=== PATIENT | male | born 1990 | race American Indian/Alaskan Native ===

== ENCOUNTER 2018-01-21 09:19 | Emergency (ER) | payer OTHER ==
[2018-01-21 09:30] VITALS: BP 117/67
[2018-01-21] MEDS ORDERED: ZOFRAN IV ONE (09:51)
[2018-01-21] MEDS ORDERED: NACL 0.9% 1000 ML 1,000 ML IV ONE (09:51)
--- NOTE | 2018-01-21 09:56 | Emergency Department Report ---
ED General Adult HPI - General Chief complaint: Weakness Stated complaint: CHEST/THROAT PAIN Time Seen by Provider: 01/21/18 09:45 Source: patient Mode of arrival: Ambulatory Limitations: No Limitations - History of Present Illness Initial comments: Patient is 27 years old male with significant past medical history. Patient presented to the ER complaining of 3 week history of generalized weakness and weight loss of about 10 pounds. Patient also stated that his been having difficulty swallowing and he has some whitish discoloration on his tongue and his oral area. Patient stated that he is sexually active with 1 male partner. Patient stated that he was tested for HIV 5 months ago and was negative. Patient denied any fever that is stated that he's been having loss of appetite for the last 3 month. - Related Data Home Medications Medication Instructions Recorded Confirmed Last Taken Cyanocobalamin (Vitamin B-12) 1,000 mcg PO DAILY 01/21/18 01/21/18 Unknown [Vitamin B-12] Multivit-Min/Iron Fum/Folic AC 1 each PO DAILY 01/21/18 01/21/18 Unknown [Htfal-Uwoqzmf-Fxuktmtg Tablet] Allergies Allergy/AdvReac Type Severity Reaction Status Date / Time No Known Allergies Allergy Unverified 01/21/18 09:30 ED Review of Systems ROS: Stated complaint: CHEST/THROAT PAIN Other details as noted in HPI Comment: All other systems reviewed and negative ENT: throat pain Respiratory: cough Cardiovascular: denies: chest pain, palpitations Gastrointestinal: nausea. denies: abdominal pain, vomiting, diarrhea, constipation, hematemesis, melena, hematochezia Genitourinary: denies: urgency, dysuria, frequency, hematuria, discharge Neurological: weakness (generalized). denies: headache, numbness, paresthesias , confusion, abnormal gait, vertigo ED Past Medical Hx - Past Medical History Previous Medical History?: No - Surgical History Past Surgical History?: No - Social History Smoking Status: Never Smoker Substance Use Type: None - Medications Home Medications: Home Medications Medication Instructions Recorded Confirmed Last Taken Type Cyanocobalamin (Vitamin B-12) 1,000 mcg PO DAILY 01/21/18 01/21/18 Unknown History [Vitamin B-12] Multivit-Min/Iron Fum/Folic AC 1 each PO DAILY 01/21/18 01/21/18 Unknown History [Fjnsu-Ppkhcuc-Hixxxbqa Tablet] ED Physical Exam - General Limitations: No Limitations General appearance: alert, in no apparent distress, cachectic - Head Head exam: Present: atraumatic, normocephalic, normal inspection - Eye Eye exam: Present: normal appearance, PERRL - ENT ENT exam: Present: other (oral thrush) - Neck Neck exam: Present: normal inspection, full ROM. Absent: tenderness, meningismus, lymphadenopathy, thyromegaly - Respiratory Respiratory exam: Present: normal lung sounds bilaterally. Absent: respiratory distress, wheezes, rales, rhonchi, chest wall tenderness, accessory muscle use, decreased breath sounds, prolonged expiratory - Cardiovascular Cardiovascular Exam: Present: regular rate, normal rhythm, normal heart sounds - GI/Abdominal GI/Abdominal exam: Present: soft, normal bowel sounds. Absent: distended, tenderness, guarding, rebound, rigid, organomegaly, mass, bruit, pulsatile mass , hernia - Back Exam Back exam: Present: normal inspection, full ROM. Absent: tenderness, CVA tenderness (L), muscle spasm, paraspinal tenderness, vertebral tenderness - Neurological Exam Neurological exam: Present: alert, oriented X3, CN II-XII intact, normal gait, reflexes normal - Skin Skin exam: Present: warm, intact, normal color ED Course Vital Signs 01/21/18 09:25 Temperature 99.1 F Pulse Rate 106 H Respiratory 16 Rate Blood Pressure 117/67 O2 Sat by Pulse 100 Oximetry ED Medical Decision Making - Lab Data Result diagrams: 01/21/18 10:40 01/21/18 10:40 - Radiology Data Radiology results: report reviewed Referring Physician: LYNDSAY RADER Patient Name: FAY BARROSO Date of : 1990 Sex: Male Report Date: 2018-01-21 Report Status: Finalized Findings [facility] [address] [place] [address] XRay Report Signed Patient: FAY BARROSO MR#: [id number] : 1990 Acct:[id number] Age/Sex: 27 / M ADM Date: 01/21/18 Loc: ED Attending Dr: Ordering Physician: LYNDSAY RADER Date of Service: 01/21/18 Procedure(s): XR chest routine 2V Accession Number(s): [id number] cc: LYNDSAY Mejias Time In Minutes: ROUTINE CHEST, TWO VIEWS: HISTORY: Weakness. The trachea, heart, mediastinal contour, lung najera and bony thorax are unremarkable. IMPRESSION: Unremarkable chest x-ray. Transcribed By: TTR Dictated By: BHAVESH CONROY JR, MD Electronically Authenticated By: BHAVESH CONROY JR, MD Signed Date/Time: 01/21/18 101 DD/ 1017 TD/TT: 01/21/18 1017 - Medical Decision Making I discussed the patient with Dr Villa for admission. Critical care attestation.: If time is entered above; I have spent that time in minutes in the direct care of this critically ill patient, excluding procedure time. ED Disposition Clinical Impression: Newly diagnosed HIV-positive, Oral pharyngeal candidiasis Disposition: OP ADMIT IP TO THIS HOSP Is pt being admited?: Yes Condition: Stable Referrals: PRIMARY CARE, [Primary Care Provider] - 3-5 Days
--- NOTE | 2018-01-21 10:40 | XRay Report ---
ROUTINE CHEST, TWO VIEWS: HISTORY: Weakness. The trachea, heart, mediastinal contour, lung najera and bony thorax are unremarkable. IMPRESSION: Unremarkable chest x-ray.
[2018-01-21 10:51] LABS: Hematocrit 30.7 % (35.5-45.6); Mean Corpuscular HGB Conc 33 % (32-34); Mean Corpuscular Hemoglobin 30 pg (28-32); Mean Corpuscular Volume 92 fl (84-94); Platelet Count 198 K/mm3 (140-440); Red Blood Count 3.33 M/mm3 (3.65-5.03); Red Cell Distribution Width 14.9 % (13.2-15.2)
[2018-01-21 11:08] LABS: Bacteria,Urine 1+ /HPF (Negative); Bilirubin,Urine NEG (Negative); Blood,Urine NEG (Negative); Color,Urine Yellow (Yellow); Mucus,Urine 3+ /HPF; Urobilinogen,Urine < 2.0 mg/dL (<2.0)
[2018-01-21 11:12] LABS: Albumin 3.7 g/dL (3.9-5); BUN/Creatinine Ratio 10; Blood Urea Nitrogen 8 mg/dL (9-20); Calcium 9.1 mg/dL (8.4-10.2); Hemolysis Index 99
[2018-01-21 12:06] LABS: Alanine Aminotransferase 34 units/L (7-56)
[2018-01-21 12:24] LABS: Anisocytosis 1+; Basophils % (Manual) 0 % (0.0-1.8); Eosinophils % (Manual) 0 % (0.0-4.3); Total Cells Counted 100
[2018-01-21 12:25] LABS: Ovalocytes Few; Platelet Estimate Cons; Poikilocytosis 1+; Tear Drop Cells Few
[2018-01-21] MEDS ORDERED: MAGIC MOUTHWASH PO ONE (12:41)
--- NOTE | 2018-01-21 12:42 | History and Physical Report ---
History of Present Illness Chief complaint: I think something is wrong with my body History of present illness: 27 YO Male with no PMH presents to ED for evaluation of difficulty swallowing. Pt seen and evaluated in ED and found to have Oral Dona as well as HIV Disease. Pt treated with HIV testing which was found to be positive. Pt treated with antifungal therapy and magic mouth wash with improvement in symptoms. Pt medically optimized and back to usual state of health. Pt discharged home and instructed to f/u pcp 1 wk, and ID at discharge. Past History Past Medical History: No medical history Past Surgical History: No surgical history, Other (reviewed) Social history: single Family history: no significant family history Medications and Allergies Allergies Allergy/AdvReac Type Severity Reaction Status Date / Time No Known Allergies Allergy Unverified 01/21/18 09:30 Home Medications Medication Instructions Recorded Confirmed Last Taken Type Cyanocobalamin (Vitamin B-12) 1,000 mcg PO DAILY 01/21/18 01/21/18 Unknown History [Vitamin B-12] Fluconazole [Diflucan TAB] 100 mg PO QDAY #7 tablet 01/21/18 Unknown Rx Multivit-Min/Iron Fum/Folic AC 1 each PO DAILY 01/21/18 01/21/18 Unknown History [Ytvms-Wjllcpo-Rxricafa Tablet] Nystas/Diphen/Xyl Visc/Mylanta 30 ml MM Q4H PRN #300 ml 01/21/18 Unknown Rx [Magic Mouthwash] Active Meds: Active Medications Lidocaine HCl (Magic Mouthwash) 15 ml PO ONCE ONE Stop: 01/21/18 12:42 Review of Systems Constitutional: weight loss, fatigue, weakness, malaise Ears, nose, mouth and throat: no ear pain, no ear discharge, no tinnitis, no decreased hearing, no nose pain, no nasal congestion, no nasal discharge Cardiovascular: no chest pain, no orthopnea, no palpitations, no rapid/ irregular heart beat, no edema, no syncope, no lightheadedness Respiratory: no cough, no cough with sputum, no excessive sputum, no hemoptysis , no shortness of breath Gastrointestinal: no abdominal pain, no nausea, no vomiting, no diarrhea Genitourinary Male: no hematuria, no flank pain, no discharge, no urinary frequency, no nocturia, no incontinence, no erectile dysfunction Rectal: no pain, no incontinence, no bleeding Musculoskeletal: no neck stiffness, no neck pain, no shooting arm pain, no arm numbness/tingling, no low back pain, no shooting leg pain Integumentary: no rash, no pruritis, no redness, no sores, no wounds Neurological: no transient paralysis, no paralysis, no weakness, no parathesias , no numbness, no tingling, no seizures, no syncope Psychiatric: no anxiety, no memory loss, no change in sleep habits, no sleep disturbances, no insomnia, no hypersomnia, no change in appetite, no change in libido, no suicidal ideation, no disorientation Endocrine: no cold intolerance, no heat intolerance, no polyphagia, no excessive thirst, no polydipsia, no polyuria Hematologic/Lymphatic: no easy bruising, no easy bleeding, no lymphadenopathy, no lymphedema Allergic/Immunologic: no urticaria, no allergic rhinitis, no wheezing, no persistent infections, no anaphylaxis, no angioedema Exam - Constitutional Vitals: Temp Pulse Resp BP Pulse Ox 99.1 F 106 H 16 117/67 100 01/21/18 09:25 01/21/18 09:25 01/21/18 09:25 01/21/18 09:25 01/21/18 09:25 General appearance: Present: no acute distress, cachectic - EENT Eyes: Present: PERRL ENT: hearing intact, clear oral mucosa - Neck Neck: Present: supple, normal ROM - Respiratory Respiratory effort: normal Respiratory: bilateral: CTA - Cardiovascular Heart Sounds: Present: S1 & S2. Absent: rub, click - Extremities Extremities: pulses symmetrical, No edema Peripheral Pulses: within normal limits - Abdominal General gastrointestinal: Present: soft, non-tender, non-distended, normal bowel sounds Male genitourinary: Present: normal - Integumentary Integumentary: Present: clear, warm, dry - Musculoskeletal Musculoskeletal: gait normal, strength equal bilaterally - Psychiatric Psychiatric: appropriate mood/affect, intact judgment & insight - Neurologic Neurologic: CNII-XII intact, moves all extremities Results - Labs CBC & Chem 7: 01/21/18 10:40 01/21/18 10:40 Labs: Abnormal lab results 01/21/18 01/21/18 Range/Units 10:40 10:40 WBC 4.3 L (4.5-11.0) K/mm3 RBC 3.33 L (3.65-5.03) M/mm3 Hgb 10.0 L (11.8-15.2) gm/dl Hct 30.7 L (35.5-45.6) % Seg Neuts % (Manual) 80.0 H (40.0-70.0) % Lymphocytes % (Manual) 5.0 L (13.4-35.0) % Monocytes % (Manual) 13.0 H (0.0-7.3) % Lymphocytes # (Manual) 0.2 L (1.2-5.4) K/mm3 Sodium 135 L (137-145) mmol/L Chloride 97.9 L (98-107) mmol/L BUN 8 L (9-20) mg/dL Total Protein 9.3 H (6.3-8.2) g/dL Albumin 3.7 L (3.9-5) g/dL Assessment and Plan - Patient Problems (1) Newly diagnosed HIV-positive Status: Acute Plan to address problem: Outpatient ID follow up (2) Oral pharyngeal candidiasis Status: Acute Plan to address problem: diflucan, Magic mouthwash
[2018-01-21] MEDS ORDERED: DIFLUCAN PO ONE (13:17)
== END 2018-01-21 14:36 | disposition home or self-care (01) ==
LOC: ED 09:19
DX: B37.0 Candidal stomatitis (principal)
CPT/HCPCS: 36415; 71046; 80053; 81001; 85007; 85025; 86689; 87806; 96374; 99284; J2405; J7030